=== PATIENT | male | born 1975 | race Caucasian/White ===

== ENCOUNTER 2016-10-19 17:00 | Emergency (ER) | payer SELFPAY ==
[~2016-10-19] VITALS: Ht 180.3 cm; Wt 68.0 kg
[2016-10-20 01:10] VITALS: BP 149/87
== END 2016-10-20 02:05 | disposition home or self-care (01) ==
LOC: ER 17:00
DX: R42 Dizziness and giddiness (principal); R53.83 Other fatigue; F17.200 Nicotine dependence, unspecified, uncomplicated; Z59.0 Homelessness
CPT/HCPCS: 99283